=== PATIENT | female | born 1930 | race Hispanic/Latino ===

== ENCOUNTER 2020-06-04 20:39 | Inpatient (IN) | payer MEDICARE, OTHER ==
[~2020-06-04] VITALS: Ht 165.1 cm; Wt 99.8 kg
[2020-06-04] MEDS ORDERED: SODIUM CHLORIDE 0.9% 1000ML 1,000 ML IV STA ×3 (21:07)
[2020-06-04] MEDS ORDERED: PIPER-TAZ 3.375 GM 50 ML IV ONE (21:15)
[2020-06-04] MEDS ORDERED: OMEPRAZOLE40 MG PO (21:35)
[2020-06-04] MEDS ORDERED: ULTRACET TABLE1 EACH (21:35)
[2020-06-04] MEDS ORDERED: ATORVASTATIN CA20 MG PO (21:35)
[2020-06-04] MEDS ORDERED: ARTHRITIS PAIN650 M2 (21:35)
[2020-06-04] MEDS ORDERED: SODIUM CHLORIDE 0.9% 1000ML 3,000 ML ONE (21:53)
[2020-06-04] MEDS ORDERED: PIPER-TAZ 3.375 GM 50 ML ONE (21:54)
[2020-06-04] MEDS ORDERED: VANCOMYCIN 1GM/NS 250 ML 250 ML IV SCH (23:30)
[2020-06-04] MEDS ORDERED: SODIUM CHLORIDE 0.9% 1000ML 1,000 ML IV SCH (23:30)
[2020-06-04] MEDS ORDERED: VANCOMYCIN 1GM/NS 250 ML 250 ML IV ONE (23:30)
[2020-06-04] MEDS ORDERED: VANCOMYCIN 1GM/NS 250 ML 250 ML ONE (23:52)
[2020-06-04] MEDS: ACETAMINOPHEN 325 MG TAB PO PRN (23:52)
[2020-06-05] VITALS (8 sets, daily range): BP systolic 129–142; BP diastolic 50–65
[2020-06-05] MEDS ORDERED: PIPER-TAZ 3.375 GM 50 ML IV SCH
[2020-06-05] MEDS ORDERED: ACETAMINOPHEN 325 MG TAB ONE (00:14)
[2020-06-05] MEDS ORDERED: ACETAMINOPHEN 120 MG SUPP PR ONE (00:19)
[2020-06-05] MEDS ORDERED: PIPER-TAZ 3.375 GM 50 ML ONE (01:13)
[2020-06-05] MEDS ORDERED: SODIUM CHLORIDE 0.9% 1000ML 1,000 ML ONE (01:20)
[2020-06-05 07:16] LABS: BASOPHILS % 0.3 % (0.0-1.0); HEMATOCRIT 35.8 % (34.2-44.1); HEMOGLOBIN 11.5 g/dL (12.0-16.0); LYMPHOCYTES % 16.7 % (18.0-39.1); MEAN CORPUSCULAR HEMOGLOBIN 31.3 pg (28-32); MEAN CORPUSCULAR HGB CONC 32.1 g/dL (31-35); MEAN CORPUSCULAR VOLUME 97.5 fL (81-99); MONOCYTES % 8.8 % (4.4-11.3); NEUTROPHILS # (AUTO) 8.6 (2.1-6.9); NEUTROPHILS % 73.4 % (38.7-80.0); PLATELET COUNT 177 x10e3/uL (140-360); RED BLOOD COUNT 3.67 x10e6/uL (3.6-5.1); RED CELL DISTRIBUTION WIDTH 13.2 % (11.7-14.4)
[2020-06-05 07:38] LABS: ALBUMIN 3.2 g/dL (3.5-5.0); CALCIUM 8.2 mg/dL (8.4-10.2); CREATININE, SERUM 0.96 mg/dL (0.57-1.11)
[2020-06-05] MEDS: PIPERACILLIN/TAZOBAC 3.375 GM in SODIUM CHLORIDE 0.9% 50ML 50 ML IV SCH ×3 (16:00→22:00)
[2020-06-05] MEDS ORDERED: REMDESIVIR 200MG/NS 100ML 200 MG in SODIUM CHLORIDE 0.9% 100 ML 100 ML IV ONE (17:00)
[2020-06-05] MEDS: ENOXAPARIN SOD INJ 40 MG/0.4 ML SYR SC SCH (18:21)
[2020-06-05] MEDS: DEXAMETHASONE 4 MG TAB PO SCH (18:21)
[2020-06-06] VITALS (8 sets, daily range): BP systolic 126–161; BP diastolic 61–89
[2020-06-06] MEDS: PIPERACILLIN/TAZOBAC 3.375 GM in SODIUM CHLORIDE 0.9% 50ML 50 ML IV SCH ×4 (04:00→22:27)
[2020-06-06] MEDS: PANTOPRAZOLE SOD 40 MG TABEC PO SCH (09:25)
[2020-06-06] MEDS: REMDESIVIR 100MG/NS 100ML 100 MG in SODIUM CHLORIDE 0.9% 100 ML 100 ML IV SCH (14:31)
[2020-06-06] MEDS: DEXAMETHASONE 4 MG TAB PO SCH (16:24)
[2020-06-06] MEDS: ENOXAPARIN SOD INJ 40 MG/0.4 ML SYR SC SCH (17:14)
[2020-06-07] VITALS (8 sets, daily range): BP systolic 143–166; BP diastolic 70–94
[2020-06-07] MEDS: PIPERACILLIN/TAZOBAC 3.375 GM in SODIUM CHLORIDE 0.9% 50ML 50 ML IV SCH ×2 (07:59→09:54)
[2020-06-07] MEDS: PANTOPRAZOLE SOD 40 MG TABEC PO SCH (08:00)
[2020-06-07] MEDS: CEFTRIAXONE SOD 1 GM/NS 50 ML 50 ML IV SCH (13:32)
[2020-06-07] MEDS ORDERED: CEFTRIAXONE SOD 1 GM VIAL ONE (13:39)
[2020-06-07] MEDS ORDERED: SODIUM CHLORIDE 0.9% 50ML 50 ML ONE (13:40)
[2020-06-07] MEDS: REMDESIVIR 100MG/NS 100ML 100 MG in SODIUM CHLORIDE 0.9% 100 ML 100 ML IV SCH (13:44)
[2020-06-07] MEDS: ENOXAPARIN SOD INJ 40 MG/0.4 ML SYR SC SCH (16:37)
[2020-06-07] MEDS: DEXAMETHASONE 4 MG TAB PO SCH (16:37)
[2020-06-07] MEDS: ACETAMINOPHEN 325 MG TAB PO PRN (22:35)
[2020-06-08] VITALS: BP 139/76
[2020-06-08] MEDS: CEFTRIAXONE SOD 1 GM/NS 50 ML 50 ML IV SCH (01:00)
[2020-06-08] MEDS ORDERED: CEFTRIAXONE SOD 1 GM VIAL ONE (01:53)
[2020-06-08] MEDS ORDERED: SODIUM CHLORIDE 0.9% 50ML 50 ML ONE (01:54)
[2020-06-08] MEDS ORDERED: SODIUM CHLORIDE 0.9% 100 ML ONE (03:09)
[2020-06-08 04:00] VITALS: BP 142/83
[2020-06-08] MEDS: PANTOPRAZOLE SOD 40 MG TABEC PO SCH (08:10)
[2020-06-08 08:13] LABS: EOSINOPHILS % 0.1 % (0.0-6.0); HEMATOCRIT 37.7 % (34.2-44.1); HEMOGLOBIN 12.2 g/dL (12.0-16.0); LYMPHOCYTES # (AUTO) 1.3 (1.0-3.2); LYMPHOCYTES % 17.7 % (18.0-39.1); MEAN CORPUSCULAR HEMOGLOBIN 30.9 pg (28-32); MEAN CORPUSCULAR HGB CONC 32.4 g/dL (31-35); MEAN CORPUSCULAR VOLUME 95.4 fL (81-99); MONOCYTES # (AUTO) 0.7 (0.2-0.8); MONOCYTES % 10.2 % (4.4-11.3); NEUTROPHILS # (AUTO) 5.2 (2.1-6.9); NEUTROPHILS % 71.6 % (38.7-80.0); PLATELET COUNT 226 x10e3/uL (140-360); RED BLOOD COUNT 3.95 x10e6/uL (3.6-5.1); RED CELL DISTRIBUTION WIDTH 12.7 % (11.7-14.4)
[2020-06-08 08:36] LABS: ALANINE AMINOTRANSFERASE 17 IU/L (0-55); ALBUMIN 2.8 g/dL (3.5-5.0); ALBUMIN/GLOBULIN RATIO 0.7 (0.8-2.0); ALKALINE PHOSPHATASE 54 IU/L (40-150); ANION GAP 11.8 mmol/L (8-16); BLOOD UREA NITROGEN 24 mg/dL (7-26); BUN/CREATININE RATIO 30 (6-25); CALCIUM 8.6 mg/dL (8.4-10.2); CARBON DIOXIDE 24 mmol/L (22-29); CHLORIDE 109 mmol/L (98-107); EST GLOMERULAR FILTRATION RATE > 60 ML/MIN (60-); GLUCOSE 104 mg/dL (74-118); POTASSIUM 3.8 mmol/L (3.5-5.1); SODIUM 141 mmol/L (136-145)
[2020-06-08 10:11] VITALS: BP 170/72
[2020-06-08 10:48] VITALS: BP 170/72
[2020-06-08] MEDS: CEFTRIAXONE SOD 1 GM in SODIUM CHLORIDE 0.9% 50ML 50 ML IV SCH ×2 (12:46→23:29)
[2020-06-08] MEDS: REMDESIVIR 100MG/NS 100ML 100 MG in SODIUM CHLORIDE 0.9% 100 ML 100 ML IV SCH (14:02)
[2020-06-08] MEDS: ENOXAPARIN SOD INJ 40 MG/0.4 ML SYR SC SCH (16:55)
[2020-06-08] MEDS: DEXAMETHASONE 4 MG TAB PO SCH (16:55)
[2020-06-08 20:00] VITALS: BP 142/70
[2020-06-08 21:00] VITALS: BP 142/70
[2020-06-09] VITALS: BP 146/70
[2020-06-09 04:00] VITALS: BP 137/84
[2020-06-09 05:54] LABS: BASOPHILS % 0.3 % (0.0-1.0); EOSINOPHILS % 0.1 % (0.0-6.0); HEMATOCRIT 38.6 % (34.2-44.1); HEMOGLOBIN 12.8 g/dL (12.0-16.0); LYMPHOCYTES # (AUTO) 1.3 (1.0-3.2); LYMPHOCYTES % 16.9 % (18.0-39.1); MEAN CORPUSCULAR HEMOGLOBIN 31.1 pg (28-32); MEAN CORPUSCULAR HGB CONC 33.2 g/dL (31-35); MEAN CORPUSCULAR VOLUME 93.9 fL (81-99); MONOCYTES # (AUTO) 0.7 (0.2-0.8); MONOCYTES % 9.3 % (4.4-11.3); NEUTROPHILS # (AUTO) 5.7 (2.1-6.9); NEUTROPHILS % 72.8 % (38.7-80.0); PLATELET COUNT 261 x10e3/uL (140-360); RED BLOOD COUNT 4.11 x10e6/uL (3.6-5.1); RED CELL DISTRIBUTION WIDTH 12.5 % (11.7-14.4)
[2020-06-09 06:24] LABS: ANION GAP 14.7 mmol/L (8-16); BLOOD UREA NITROGEN 25 mg/dL (7-26); BUN/CREATININE RATIO 32 (6-25); CALCIUM 8.8 mg/dL (8.4-10.2); CARBON DIOXIDE 23 mmol/L (22-29); CHLORIDE 106 mmol/L (98-107); CREATININE, SERUM 0.78 mg/dL (0.57-1.11); EST GLOMERULAR FILTRATION RATE > 60 ML/MIN (60-); GLUCOSE 124 mg/dL (74-118); POTASSIUM 3.7 mmol/L (3.5-5.1); SODIUM 140 mmol/L (136-145)
[2020-06-09 08:26] VITALS: BP 159/72
[2020-06-09 09:19] VITALS: BP 159/72
[2020-06-09] MEDS: PANTOPRAZOLE SOD 40 MG TABEC PO SCH (09:42)
[2020-06-09] MEDS: CEFTRIAXONE SOD 1 GM in SODIUM CHLORIDE 0.9% 50ML 50 ML IV SCH (11:37)
[2020-06-09 12:45] VITALS: BP 134/57
[2020-06-09] MEDS: REMDESIVIR 100MG/NS 100ML 100 MG in SODIUM CHLORIDE 0.9% 100 ML 100 ML IV SCH (13:10)
[2020-06-09] MEDS ORDERED: CIPRO500 MG PO (15:25)
[2020-06-09] MEDS: ENOXAPARIN SOD INJ 40 MG/0.4 ML SYR SC SCH (16:48)
== END 2020-06-09 17:57 | disposition home health service (06) | DRG 177 ==
LOC: FSED 20:57 → EDBD 20:57 → ERHOLD 23:24 → MED/SURG3 06-05 05:08
PROVIDERS: ADMIT Internal Medicine; ATTEND Internal Medicine
PROC: 3E0333Z Introduction of Anti-inflammatory into Peripheral Vein, Percutaneous Approach (ICD-10-PCS; principal; 2020-06-05)
PROC: XW033E5 Introduction of Remdesivir Anti-infective into Peripheral Vein, Percutaneous Approach, New Technology Group 5 (ICD-10-PCS; 2020-06-06)
DX: U07.1 COVID-19 (principal); J12.82 Pneumonia due to coronavirus disease 2019; J96.00 Acute respiratory failure, unspecified whether with hypoxia or hypercapnia; T84.020A Dislocation of internal right hip prosthesis, initial encounter; R78.81 Bacteremia; K21.9 Gastro-esophageal reflux disease without esophagitis; I10 Essential (primary) hypertension; D64.9 Anemia, unspecified; Z74.01 Bed confinement status; E78.5 Hyperlipidemia, unspecified; Z96.641 Presence of right artificial hip joint; Z96.651 Presence of right artificial knee joint; E03.9 Hypothyroidism, unspecified; E66.9 Obesity, unspecified; Z68.36 Body mass index [BMI] 36.0-36.9, adult; B96.89 Other specified bacterial agents as the cause of diseases classified elsewhere
CPT/HCPCS: 36415; 70450; 71045; 74176; 80048; 80053; 80076; 81003; 82948; 83605; 85025; 87040; 87071; 87186; 87205; 93005; 99284; J0696; J1650; J2543; J3370; J7030; J7050; U0002